=== PATIENT | male | born 1965 | race Two or more races ===

== ENCOUNTER 2024-11-08 16:19 | Inpatient (IN) | payer OTHER ==
[2024-11-08] MEDS: ATORVASTATIN 10 MG TAB PO SCH (21:16)
[2024-11-08] MEDS: hydrALAZINE HCL 25 MG TAB PO SCH (21:16)
[2024-11-08] MEDS: PANTOPRAZOLE 40 MG/10 ML VIAL IVP SCH (21:17)
[2024-11-08 21:26] LABS: HCT 43.2 % (39.0-53.0); HGB 14.1 gm/dL (13.0-17.5); MCH 31.1 pg (25.0-35.0); MCHC 32.5 g/dL (31.0-37.0); MCV 95.7 fL (80.0-100.0); Mean Platelet Volume 7.8; Platelet Count 226 k/uL (150-450); RBC 4.52 m/uL (4.30-5.90); RDW 13.1 % (11.5-15.5)
[2024-11-08] MEDS: IPRATROPIUM-ALBUTEROL 3 ML NEB INHALATION SCH (21:39)
[2024-11-08 22:02] LABS: African American GFR (CKD) 76 (>60 ml/min/1.73 sqM); Anion Gap 10 mmol/L; Blood Urea Nitrogen 30 mg/dL (9-20); Carbon Dioxide 24 mmol/L (22-30); Chloride 101 mmol/L (98-107); Glucose 93 mg/dL (74-99); Non-African American GFR(CKD) 66 (>60 ml/min/1.73 sqM); Potassium 4.1 mmol/L (3.5-5.1); Sodium 135 mmol/L (137-145)
[2024-11-08] MEDS: HEPARIN SODIUM,PORCINE 5,000 UNIT/ML 1 ML VIAL SQ SCH (23:07)
[2024-11-09] MEDS: carvediloL 6.25 MG TAB PO SCH (06:09)
[2024-11-09 06:56] LABS: Basophils % (A) 0 %; Eosinophils # (A) 0.3 k/uL (0-0.7); Eosinophils % (A) 4 %; HGB 13.4 gm/dL (13.0-17.5); Lymphocytes # (A) 1.4 k/uL (1.0-4.8); Lymphocytes % (A) 20 %; MCH 30.2 pg (25.0-35.0); MCHC 31.9 g/dL (31.0-37.0); MCV 94.8 fL (80.0-100.0); Mean Platelet Volume 8.5; Monocytes # (A) 0.6 k/uL (0-1.0); Monocytes % (A) 8 %; Neutrophils # (A) 4.9 k/uL (1.3-7.7); Neutrophils % (A) 67 %; Platelet Count 211 k/uL (150-450); RBC 4.43 m/uL (4.30-5.90); RDW 13.5 % (11.5-15.5); WBC 7.3 k/uL (3.8-10.6)
[2024-11-09 07:20] LABS: ALT 13 U/L (4-49); AST 18 U/L (17-59); African American GFR (CKD) 67 (>60 ml/min/1.73 sqM); Albumin 3.7 g/dL (3.5-5.0); Alkaline Phosphatase 55 U/L (38-126); Anion Gap 7 mmol/L; Blood Urea Nitrogen 27 mg/dL (9-20); Carbon Dioxide 26 mmol/L (22-30); Chloride 103 mmol/L (98-107); Glucose 114 mg/dL (74-99); Magnesium 2.1 mg/dL (1.6-2.3); Non-African American GFR(CKD) 58 (>60 ml/min/1.73 sqM); Sodium 136 mmol/L (137-145); Total Bilirubin 0.4 mg/dL (0.2-1.3)
[2024-11-09 07:24] LABS: INR 1.1 (<1.2); Prothrombin Time 11.9 sec (10.0-12.5)
[2024-11-09] MEDS: ISOSORBIDE MONONITRATE ER 30 MG TAB.ER.24H PO SCH (08:56)
[2024-11-09] MEDS: ASPIRIN 81 MG PO SCH (08:56)
[2024-11-09] MEDS: amLODIPine 10 MG TAB PO SCH (08:56)
--- NOTE | 2024-11-09 09:26 | XR ---
EXAMINATION TYPE: XR chest 1V portable DATE OF EXAM: 11/09/2024 9:21 AM COMPARISON: None CLINICAL INDICATION: Male, 58 years old with history of preop CABG; [facility] TECHNIQUE: XR chest 1V portable Frontal view of the chest. FINDINGS: Lungs/Pleura: Blunting of the costophrenic angles with right midlung flat like probable fluid in the major fissure. There is no evidence of focal consolidation, or pneumothorax. Pulmonary vascularity: Unremarkable. Heart/mediastinum: Cardiomediastinal silhouette is unremarkable. Musculoskeletal: No acute osseous pathology. Other findings: None IMPRESSION: Platelike right midlung suspected fluid in the fissure. Blunting of the left costophrenic angle also present compatible with pleural effusion [facility], , 11/09/2024 9:24 AM
--- NOTE | 2024-11-09 09:49 | P.GSCN ---
History of Present Illness Consult date: 11/09/24 Reason for Consult: Coronary artery disease Requesting physician: Kar E Sheet History of present illness: This is a 58-year-old gentleman who does not follow outpatient with a primary care physician on regular basis, and he reports no significant previous medical history except current tobacco dependence. Apparently he had been experiencing progressive shortness of breath for a few weeks, he did present to an urgent care clinic and was given steroids and antibiotics for suspected pneumonia. Apparently he did not like the way the antibiotics made him feel and he quit taking them. He then presented to [facility] for evaluation and treatment. He did have a CT of the chest demonstrating cardiomyopathy with pulmonary vascular congestion, as well as bilateral pleural effusions. proBNP was over 12,000 and he was treated for acute heart failure. Transthoracic echocardiogram was completed reportedly demonstrating reduced left ventricular systolic function with EF of 40 to 45%, global hypokinesis of the left ventricle, and no valvular pathology, this is per the report as there were no films available for us to review. For further evaluation he was recommended to undergo heart catheterization which was completed yesterday by Dr. Faulkenr revealing distal left main stenosis 40%, mid and distal left anterior descending coronary artery stenosis 70 to 80%, moderate disease in the proximal ramus, and mid RCA disease 70%. Due to these findings patient was transferred to [facility] for cardiothoracic surgery recommendations regarding surgical revascularization. Review of Systems Review of systems was completed and was negative except as noted - Cardiovascular Reports as per HPI, Reports dyspnea on exertion, Reports shortness of breath Past Medical History Past Medical History: No Reported History History of Any Multi-Drug Resistant Organisms: None Reported Past Surgical History: No Surgical Hx Reported Past Anesthesia/Blood Transfusion Reactions: No Reported Reaction Past Psychological History: No Psychological Hx Reported Smoking Status: Current every day smoker Past Drug Use History: None Reported Medications and Allergies Home Medications Medication Instructions Recorded Confirmed Type Albuterol Inhaler [Ventolin Hfa 1 puff INHALATION RT-Q4H PRN 11/08/24 11/08/24 History Inhaler] Ipratropium-Albuterol Nebulize 3 ml INHALATION RT-Q8H PRN 11/08/24 11/08/24 History [Duoneb 0.5 mg-3 mg/3 ml Soln] Allergies Allergy/AdvReac Type Severity Reaction Status Date / Time No Known Allergies Allergy Verified 11/08/24 21:12 Surgical - Exam Vital Signs Temp Pulse Resp BP Pulse Ox 97.5 F L 85 17 163/94 97 11/08/24 18:21 11/08/24 18:21 11/08/24 18:21 11/08/24 18:21 11/08/24 18:21 CONSTITUTIONAL: Awake and alert, appears comfortable, cooperative, well-developed, well-nourished, no pain, no acute distress EYES: Pupils equal, round, reactive to light, normal ocular movement ENT: Moist mucous membranes without oral lesions present NECK: No masses, no bruits, trachea midline RESPIRATORY: Lungs sounds diminished bilaterally. Respirations even, nonlabored. Currently on room air with oxygen saturation 97%. Strong cough. No chest wall deformities. No clubbing or cyanosis present CARDIOVASCULAR: S1, S2 present. Regular rate and rhythm, sinus rhythm on telemetry. Palpable peripheral pulses bilaterally. No edema present. No calf pain or tenderness noted. GASTROINTESTINAL: Abdomen soft, nontender, nondistended without masses or organomegaly noted. There is no rebound or guarding present. Active bowel sounds present 4 quadrants. GENITOURINARY: Deferred INTEGUMENTARY: Skin is warm and dry with evidence of good perfusion. NEUROLOGIC: Cranial nerves II through XII intact, normal coordination, no obvious motor or sensory deficits, speech is normal MUSKULOSKELETAL: Able to move all extremities, strength equal bilaterally, normal posture PSYCHIATRIC: Alert and oriented to person place and time, appropriate affect, intact judgment and insight CLINICAL FRAILTY SCORE 3 Results - Labs 11/09/24 06:28 11/09/24 06:28 Abnormal Lab Results - Last 24 Hours (Table) 11/08/24 11/09/24 Range/Units 21:08 06:28 Sodium 135 L 136 L (137-145) mmol/L BUN 30 H 27 H (9-20) mg/dL Creatinine 1.34 H (0.66-1.25) mg/dL Glucose 114 H (74-99) mg/dL Total Protein 6.0 L (6.3-8.2) g/dL Diabetes panel 11/08/24 11/09/24 Range/Units 21:08 06:28 Sodium 135 L 136 L (137-145) mmol/L Potassium 4.1 4.0 (3.5-5.1) mmol/L Chloride 101 103 (98-107) mmol/L Carbon Dioxide 24 26 (22-30) mmol/L BUN 30 H 27 H (9-20) mg/dL Creatinine 1.19 1.34 H (0.66-1.25) mg/dL Glucose 93 114 H (74-99) mg/dL Calcium 9.0 9.0 (8.4-10.2) mg/dL AST 18 (17-59) U/L ALT 13 (4-49) U/L Alkaline Phosphatase 55 (38-126) U/L Total Protein 6.0 L (6.3-8.2) g/dL Albumin 3.7 (3.5-5.0) g/dL Calcium panel 11/08/24 11/09/24 Range/Units 21:08 06:28 Calcium 9.0 9.0 (8.4-10.2) mg/dL Albumin 3.7 (3.5-5.0) g/dL Pituitary panel 11/08/24 11/09/24 Range/Units 21:08 06:28 Sodium 135 L 136 L (137-145) mmol/L Potassium 4.1 4.0 (3.5-5.1) mmol/L Chloride 101 103 (98-107) mmol/L Carbon Dioxide 24 26 (22-30) mmol/L BUN 30 H 27 H (9-20) mg/dL Creatinine 1.19 1.34 H (0.66-1.25) mg/dL Glucose 93 114 H (74-99) mg/dL Calcium 9.0 9.0 (8.4-10.2) mg/dL Adrenal panel 11/08/24 11/09/24 Range/Units 21:08 06:28 Sodium 135 L 136 L (137-145) mmol/L Potassium 4.1 4.0 (3.5-5.1) mmol/L Chloride 101 103 (98-107) mmol/L Carbon Dioxide 24 26 (22-30) mmol/L BUN 30 H 27 H (9-20) mg/dL Creatinine 1.19 1.34 H (0.66-1.25) mg/dL Glucose 93 114 H (74-99) mg/dL Calcium 9.0 9.0 (8.4-10.2) mg/dL Total Bilirubin 0.4 (0.2-1.3) mg/dL AST 18 (17-59) U/L ALT 13 (4-49) U/L Alkaline Phosphatase 55 (38-126) U/L Total Protein 6.0 L (6.3-8.2) g/dL Albumin 3.7 (3.5-5.0) g/dL - Imaging Chest x-ray: report reviewed, image reviewed EKG: image reviewed Additional studies: Heart catheterization films reviewed, echocardiogram report reviewed Assessment and Plan Assessment: Coronary artery disease Acute heart failure with reduced ejection fraction, EF 40 to 45%, proBNP 12,317 Suspected pneumonia with failed outpatient treatment, although no leukocytosis, remains afebrile, procalcitonin at [facility] < 0.05 Bilateral pleural effusions on CT scan at [facility] Shortness of breath, secondary to above Current tobacco dependence Plan: The patient was seen and examined laying in bed on the cardiac stepdown unit in no acute distress. Denies any chest pain or shortness of breath currently. The patient states he has too much work including heavy lifting and does not want to be left in invalid with surgery or have to have repeat hospitalizations, states if he cannot do his work he would rather . Remains on room air, remains in sinus rhythm and hemodynamically stable. Case discussed with Dr. Powell who will review patient's heart catheterization films, CAT scan. Will attempt to get echocardiogram films from [facility], preoperative testing (carotid Doppler, vein mapping, radial artery mapping, pulmonary function test) ordered. Will calculate STS risk score and perform 5 m walk test. Recommend continuing aspirin, statin, beta-miguel angel therapy. Increase activity as tolerated. Medical management of other comorbidities per internal medicine, cardiology. Thank you Dr. Loemli for this consult. We will continue to follow this patient and make further recommendations as appropriate. I have personally seen and examined the patient, performed the documentation and the assessment and plan as written. Number of minutes spent on the visit: 30. RUBEN Brantley
--- NOTE | 2024-11-09 11:29 | US ---
EXAMINATION TYPE: US carotid duplex BILAT DATE OF EXAM: 11/09/2024 COMPARISON: NONE CLINICAL INDICATION: Male, 58 years old with history of preop cardiac surgery; Additional History: .... TECHNIQUE: Grayscale, color Doppler and spectral Doppler evaluation of the bilateral carotid systems and vertebral arteries. Indirect Doppler criteria was utilized. 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 Spectral waveforms are within normal limits. IMPRESSION: Right: No hemodynamically significant stenosis. Left: No hemodynamically significant stenosis. Criteria for Assigning % of Stenosis / Diameter reduction (Estimation based on the indirect measurements of the internal carotid artery velocities (ICA PSV). 1. Normal (no stenosis)=ICA PSV < 125 cm/s: ratio < 2.0: ICA EDV<40 cm/s. 2. Less than 50% stenosis=ICA PSV < 125 cm/s: ratio < 2.0: ICA EDV<40 cm/s. 3. 50 to 69% stenosis=ICA PSV of 125 to 230 cm/s: ration 2.0 ? 4.0: ICA EDV 40-100 cm/s. 4. Greater than 70% stenosis to near occlusion= ICA PSV > 230 cm/s: ratio > 4.0: ICA EDV > 100 cm/s. 5. Near occlusion= ICA PSV velocities may be low or undetectable: variable ratio and ICA EDV. 6. Total occlusion=unable to detect flow. [facility], , 11/09/2024 11:26 AM
--- NOTE | 2024-11-09 11:30 | US ---
EXAMINATION TYPE: Pre-Operative Non-Invasive Evaluation of the hand for Potential Radial Artery Renita blue, Measurements only DATE OF EXAM: 11/09/2024 10:57 AM CLINICAL INDICATION: Male, 58 years old with history of measurements only; , Preop- Cardiac Surgery TECHNIQUE:Grayscale and color Doppler imaging of the radial artery(s) SIDE PERFORMED: FINDINGS: Dominant hand: Left Duplex Findings: Radial Artery: Color flow seen Measurements in mm, transverse view: Left Radial: Proximal: 3.7x3.8 mm Mid: 3.6x3.7 mm Distal: 3.1x4.3 mm Unable to obtain origin due to IV IMPRESSION: 1. No evidence for vascular occlusion. 2. Measurements as described above. [facility], , 11/09/2024 11:28 AM
--- NOTE | 2024-11-09 11:32 | US ---
EXAMINATION TYPE: US vein mapping BILAT DATE OF EXAM: 11/09/2024 10:57 AM COMPARISON: NONE CLINICAL INDICATION: Male, 58 years old with history of preop cardiac surgery; , Preop- Cardiac Surge ry TECHNIQUE: Grayscale and color Doppler imaging of the lower extremity venous system. SIDE PERFORMED: Bilateral FINDINGS: DUPLEX FINDINGS: Greater Saphenous: Color flow seen Measurements in mm: Right Greater Saphenous: Groin: 4.7x4.9 mm High Thigh: 4.4x3.3 mm Mid Thigh: 4.2x2.9 mm Above Knee: 3.0x2.8 mm Knee: 3.6x3.0 mm Below Knee: 2.7x2.0 mm Mid Calf: 2.8x2.1 mm At Ankle: 4.3x2.5 mm Left Greater Saphenous: Groin: 4.3x3.9 mm High Thigh: 3.6x2.4 mm Mid Thigh: 3.8x3.4 mm Above Knee: 4.0x3.4 mm Knee: 4.3x3.2 mm Below Knee: 2.8x1.9 mm Mid Calf: 3.4x2.6 mm At Ankle: 3.8x2.7 mm IMPRESSION: 1. No evidence for occlusion. 2. GSV measurements listed above. 3. Performing surgeon to determine viability as conduit. [facility], , 11/09/2024 11:30 AM
[2024-11-09] MEDS ORDERED: IPRATROPIUM-ALBUTEROL 3 ML NEB INHALATION PRN (12:16)
--- NOTE | 2024-11-09 12:49 | P.CRDCN ---
History of Present Illness History of present illness: HISTORY OF PRESENT ILLNESS: This is a 58-year-old male with a past medical history significant for nicotine dependence. Patient is not follow with a electrical worker. We have been asked to see the patient in consultation for CAD. Patient examined at the bedside. Patient initially presented to [facility] with shortness of breath. Patient underwent cardiac catheterization by Dr. Faulkner by revealing distal left main stenosis 40%, mid and distal left anterior descending coronary artery stenosis 70 to 80%, moderate disease in the proximal ramus, and mid RCA disease 70%. CT surgery was consulted for evaluation. Patient examined at bedside. Patient currently denies chest pain or pressure. He denies shortness of breath. REVIEW OF SYSTEMS: At the time of my exam: CONSTITUTIONAL: Denies fever or chills. HEENT: Denies blurred vision, vision changes, or eye pain. Denies hemoptysis CARDIOVASCULAR: Denies chest pain. Denies orthopnea. Denies PND. Denies palpitations RESPIRATORY: Denies shortness of breath. GASTROINTESTINAL: Denies abdominal pain. Denies nausea or vomiting. HEMATOLOGIC: Denies bleeding disorders. GENITOURINARY: Denies any blood in urine. SKIN: Denies pruitis. Denies rash. PHYSICAL EXAM: VITAL SIGNS: Reviewed. GENERAL: Well-developed in no acute distress. HEENT: Head is normocephalic. Pupils are equal, round. Sclerae anicteric. Mucous membranes of the mouth are moist. Neck supple. No JVD or thyromegaly LUNGS: Respirations even and unlabored. Lungs essentially clear to auscultation bilaterally. HEART: Regular rate and rhythm. S1 and S2 heard. ABDOMEN: Soft. Nondistended. Nontender. EXTREMITIES: Normal range of motion. No clubbing or cyanosis. Peripheral pulses intact. No lower extremity edema NEUROLOGIC: Awake and alert. Oriented x 3. ASSESSMENT: Shortness of breath Acute heart failure with reduced EF, currently euvolemic Coronary artery disease, CT surgery consult has been placed Ischemic cardiomyopathy, 40% Hypertension Nicotine dependence PLAN: Current cardiac medications Increase carvedilol to 12.5 mg twice a day Add losartan 50 mg daily Continue telemetry monitoring Continue to monitor blood pressure CT surgery has been consulted. Await further recommendations Further recommendations pending patient course Nurse practitioner note has been reviewed by physician. Signing provider agrees with the documented findings, assessment, and plan of care documented by CREDIT COLLECTION SPECIALIST as a scribe. Past Medical History Past Medical History: No Reported History History of Any Multi-Drug Resistant Organisms: None Reported Past Surgical History: No Surgical Hx Reported Past Anesthesia/Blood Transfusion Reactions: No Reported Reaction Past Psychological History: No Psychological Hx Reported Smoking Status: Current every day smoker Past Drug Use History: None Reported Medications and Allergies Home Medications Medication Instructions Recorded Confirmed Type Albuterol Inhaler [Ventolin Hfa 1 puff INHALATION RT-Q4H PRN 11/08/24 11/08/24 History Inhaler] Ipratropium-Albuterol Nebulize 3 ml INHALATION RT-Q8H PRN 11/08/24 11/08/24 History [Duoneb 0.5 mg-3 mg/3 ml Soln] Allergies Allergy/AdvReac Type Severity Reaction Status Date / Time No Known Allergies Allergy Verified 11/08/24 21:12 Physical Exam Vitals: Vital Signs Temp Pulse Pulse Resp BP Pulse Ox 11/09/24 08:50 97.6 F 16 200/119 97 11/09/24 08:35 106 H 16 11/09/24 08:22 106 H 16 11/09/24 06:08 83 162/98 11/09/24 03:16 97.9 F 75 17 155/84 98 11/09/24 00:19 84 18 11/09/24 00:13 81 18 11/08/24 23:09 98.1 F 87 17 159/101 94 L 11/08/24 21:56 88 11/08/24 21:39 89 11/08/24 19:51 98.1 F 84 17 151/91 93 L 11/08/24 18:21 97.5 F L 85 17 163/94 97 Intake and Output 11/08/24 11/09/24 11/09/24 22:59 06:59 14:59 Intake Total 480 10 Balance 480 10 Intake: IV 10 Invasive Line 1 10 Oral 480 Other: Voiding Method Toilet Toilet Weight 73.121 kg 70.1 kg Results 11/09/24 06:28 11/09/24 06:28 Cardiac Enzymes 11/09/24 Range/Units 06:28 AST 18 (17-59) U/L Coagulation 11/09/24 Range/Units 06:28 PT 11.9 (10.0-12.5) sec CBC 11/08/24 11/09/24 Range/Units 21:08 06:28 WBC 7.0 7.3 (3.8-10.6) k/uL RBC 4.52 4.43 (4.30-5.90) m/uL Hgb 14.1 13.4 (13.0-17.5) gm/dL Hct 43.2 42.0 (39.0-53.0) % Plt Count 226 211 (150-450) k/uL Comprehensive Metabolic Panel 11/08/24 11/09/24 Range/Units 21:08 06:28 Sodium 135 L 136 L (137-145) mmol/L Potassium 4.1 4.0 (3.5-5.1) mmol/L Chloride 101 103 (98-107) mmol/L Carbon Dioxide 24 26 (22-30) mmol/L BUN 30 H 27 H (9-20) mg/dL Creatinine 1.19 1.34 H (0.66-1.25) mg/dL Glucose 93 114 H (74-99) mg/dL Calcium 9.0 9.0 (8.4-10.2) mg/dL AST 18 (17-59) U/L ALT 13 (4-49) U/L Alkaline Phosphatase 55 (38-126) U/L Total Protein 6.0 L (6.3-8.2) g/dL Albumin 3.7 (3.5-5.0) g/dL Current Medications Generic Name Dose Route Start Last Admin Trade Name Freq PRN Reason Stop Dose Admin Albuterol/Ipratropium 3 ml 11/08/24 20:00 11/09/24 08:21 Ipratropium-Albuterol 3 Ml Neb INHALATION 3 ml RT-Q4H ARMIDA Administration Amlodipine Besylate 10 mg 11/09/24 09:00 11/09/24 08:56 Amlodipine 10 Mg Tab PO 10 mg DAILY ARMIDA Administration Aspirin 81 mg 11/09/24 09:00 11/09/24 08:56 Aspirin 81 Mg PO 81 mg DAILY ARMIDA Administration Atorvastatin Calcium 10 mg 11/08/24 21:00 11/08/24 21:16 Atorvastatin 10 Mg Tab PO 10 mg HS ARMIDA Administration Carvedilol 12.5 mg 11/09/24 17:30 Carvedilol 12.5 Mg Tab PO BID-W/MEALS ARMIDA Heparin Sodium (Porcine) 5,000 unit 11/09/24 00:00 11/09/24 08:57 Heparin Sodium,Porcine 5,000 Unit/Ml 1 Ml Vial SQ Not Given Q8HR ARMIDA Hydralazine HCl 25 mg 11/08/24 22:00 11/09/24 08:56 Hydralazine Hcl 25 Mg Tab PO 25 mg QID ARMIDA Administration Isosorbide Mononitrate 30 mg 11/09/24 09:00 11/09/24 08:56 Isosorbide Mononitrate Er 30 Mg Tab.Er.24h PO 30 mg DAILY ARMIDA Administration Losartan Potassium 50 mg 11/10/24 09:00 Losartan 50 Mg Tab PO DAILY [facility] Pantoprazole Sodium 40 mg 11/08/24 21:00 11/09/24 08:56 Pantoprazole 40 Mg/10 Ml Vial IVP 40 mg BID ARMIDA Administration Intake and Output 11/08/24 11/09/24 11/09/24 22:59 06:59 14:59 Intake Total 480 10 Balance 480 10 Intake: IV 10 Invasive Line 1 10 Oral 480 Other: Voiding Method Toilet Toilet Weight 73.121 kg 70.1 kg 11/09/24 06:28 11/09/24 06:28
[2024-11-09] MEDS ORDERED: hydrALAZINE HCL 20 MG/ML 1 ML VIAL IVP PRN (14:19)
[2024-11-09] MEDS: carvediloL 12.5 MG TAB PO SCH (17:42)
[2024-11-09] MEDS: ATORVASTATIN 40 MG TAB PO SCH (20:40)
--- NOTE | 2024-11-09 23:59 | HP ---
HISTORY AND PHYSICAL CHIEF COMPLAINT: Shortness of breath. HISTORY OF PRESENT ILLNESS: This is a 58-year-old gentleman with a past medical history of multiple medical problems, presented with shortness of breath to [facility]. Cardiac catheterization by Dr. Rico showed 3-vessel disease including left main and as well as LAD and RCA disease. The patient was subsequently referred to [facility] for further evaluation including cardiovascular evaluation. There is no history of any fever, rigors, or chills at this time. ProBNP was also elevated. The patient is on medical treatment at this time. PAST MEDICAL HISTORY: Noted. FAMILY HISTORY: No history of heart disease or strokes in the family. SOCIAL HISTORY: Smoking. 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 REVIEW OF SYSTEMS: A 14-point review of systems is negative except as mentioned earlier. PHYSICAL EXAMINATION: VITAL SIGNS: Pulse is 104, blood pressure 190/131, respirations 18. HEENT: Conjunctivae normal. NECK: No JVD. CARDIOVASCULAR: S1, S2. RESPIRATIONS: Breath sounds diminished at the bases. No rhonchi. No crackles. ABDOMEN: Soft, nontender. LEGS: No edema. NERVOUS SYSTEM: Nonfocal. LABORATORY DATA: Creatinine 1.3. ASSESSMENT: 1. Congestive heart failure acute exacerbation, acute on chronic systolic dysfunction, ejection fraction 40%. 2. Coronary artery disease with triple-vessel coronary artery disease. 3. Elevated creatinine. 4. History of nicotine dependence. 5. Hypertension. RECOMMENDATIONS AND DISCUSSION: This is a 58-year-old gentleman, who presented with multiple complex medical issues. We will monitor the patient closely. I would recommend monitor creatinine closely. Monitor fluid electrolyte balance closely. Repeat chest x-ray. Cardiology, cardiac arrest evaluation. Guarded prognosis because of multiple complex medical issues. Further recommendations to follow. Use p.r.n. hydralazine for blood pressure control. MMODL / IJN: [id number] /
[2024-11-10 06:30] LABS: Basophils % (A) 0 %; Eosinophils # (A) 0.2 k/uL (0-0.7); Eosinophils % (A) 3 %; HCT 38.5 % (39.0-53.0); HGB 12.6 gm/dL (13.0-17.5); Lymphocytes # (A) 1.3 k/uL (1.0-4.8); Lymphocytes % (A) 19 %; MCH 31.1 pg (25.0-35.0); MCHC 32.8 g/dL (31.0-37.0); MCV 94.8 fL (80.0-100.0); Mean Platelet Volume 8.4; Monocytes # (A) 0.5 k/uL (0-1.0); Monocytes % (A) 8 %; Neutrophils # (A) 4.9 k/uL (1.3-7.7); Neutrophils % (A) 69 %; Platelet Count 201 k/uL (150-450); RBC 4.07 m/uL (4.30-5.90); RDW 13.4 % (11.5-15.5); WBC 7.1 k/uL (3.8-10.6)
[2024-11-10 06:43] LABS: African American GFR (CKD) 71 (>60 ml/min/1.73 sqM); Anion Gap 11 mmol/L; Blood Urea Nitrogen 25 mg/dL (9-20); Calcium 9.1 mg/dL (8.4-10.2); Carbon Dioxide 23 mmol/L (22-30); Chloride 104 mmol/L (98-107); Glucose 116 mg/dL (74-99); Non-African American GFR(CKD) 62 (>60 ml/min/1.73 sqM); Potassium 4.3 mmol/L (3.5-5.1); Sodium 138 mmol/L (137-145)
[2024-11-10] MEDS: LOSARTAN 50 MG TAB PO SCH (08:39)
[2024-11-10] MEDS: NICOTINE 14MG/24HR PATCH TRANSDERM SCH (08:59)
[2024-11-10] MEDS: carvediloL 12.5 MG TAB PO STA (09:29)
--- NOTE | 2024-11-10 10:44 | PN ---
PROGRESS NOTE SUBJECTIVE: Sergo is a 58-year-old gentleman who is transferred from [facility] following a cardiac catheterization that revealed three-vessel coronary artery disease. He had been evaluated by CT surgery and refused bypass surgery. This morning, I re- evaluated him. He is chest pain-free and hemodynamically stable, and does not want to have surgery done. He will undergo high-risk angioplasty and understands risks and benefits. OBJECTIVE: GENERAL: He is comfortable at rest. VITAL SIGNS: Heart rate is 87 beats per minute. Blood pressure is 150/83, respiratory rate 18. CHEST: Reveals diminished air entry at the bases. HEART: Reveals first and second heart sounds. No gallop. EXTREMITIES: Did not reveal any edema. Peripheral pulses are felt. LABORATORY DATA: Show that his hemoglobin is 12.6, potassium is 4.3, creatinine is 1.26. ASSESSMENT: 1. Multivessel coronary artery disease. 2. Ischemic cardiomyopathy. 3. Uncontrolled hypertension. PLAN: The patient does not wish to go through surgical revascularization. Dr. Burgos, the on- call strategic marketing leader has had reviewed his angiographic data and will consider high-risk angioplasty. MMODL / IJN: [id number] /
[2024-11-10] MEDS: SODIUM CHLORIDE 0.9% 1,000 ML IV SCH (14:26)
[2024-11-10] MEDS: carvediloL 12.5 MG TAB PO SCH (17:29)
[2024-11-10] MEDS: IV FLUID CONTINUATION 1,000 ML IV ONE (19:00)
[2024-11-10] MEDS: TICAGRELOR 90 MG TAB PO ONE (19:09)
[2024-11-10] MEDS: MIDAZOLAM 2 MG/2 ML VIAL IVP ONE ×2 (19:09→19:21)
[2024-11-10] MEDS: LIDOCAINE 1% INJ 10MG/ML (20 ML MDV) SQ ONE (19:14)
[2024-11-10] MEDS: VERAPAMIL SYRINGE (5 MG/10 ML) INTRAARTER ONE (19:18)
[2024-11-10] MEDS: ASPIRIN 81 MG PO ONE (19:20)
[2024-11-10] MEDS: HEPARIN SODIUM 1,000 UN/ML (10ML VL) IVP ONE (19:21)
[2024-11-10] MEDS: IOPAMIDOL-370 100ML BTL INJ ONE ×2 (20:07→20:22)
[2024-11-10] MEDS: NITROGLYCERIN 1000MCG/10ML SYRINGE INTRACORON ONE (20:16)
[2024-11-10] MEDS: fentaNYL (PF) 50 MCG/ML 2 ML AMP IVP ONE (20:21)
[2024-11-10] MEDS ORDERED: ZOLPIDEM 5 MG TAB PO PRN (20:27)
[2024-11-10] MEDS ORDERED: ATROPINE SULFATE 0.1 MG/ML 10ML SYRINGE IV PRN (20:27)
[2024-11-10] MEDS ORDERED: MAG HYDROX/AL HYDROX/SIMETH 30 ML CUP PO PRN (20:27)
[2024-11-10] MEDS ORDERED: NITROGLYCERIN SL TABS 0.4 MG TAB SUBLINGUAL PRN (20:27)
[2024-11-10] MEDS ORDERED: RX INFO: IV CONTRAST WAS GIVEN 1 EACH MISC MISCELLANE PRN (20:27)
--- NOTE | 2024-11-10 20:38 | P.PCN ---
Date of Procedure: 11/10/24 Operative Findings: PERCUTANEOUS CORONARY INTERVENTION Performing physician Victor M Burgos M.D. Procedure Performed: 1. Successful stenting of the mid LAD using 3.0 x 48 mm Xience drug-eluting stent with an excellent angiographic results. 2. Adjunctive use of IVUS and IFR 3. Ultrasound-guided access of the right radial artery Indication: This is a 58-year-old gentleman who was admitted initially to [facility] with unstable angina and underwent an echocardiogram which showed cardiomyopathy with EF around 40% and then a heart catheterization which revealed severe disease involving the RCA and LAD. He was transferred to [facility] where cardiothoracic surgical consult was advised for an evaluation of CABG but the patient declined having surgery and he would like to be proceed with percutaneous coronary intervention. With that being said he was brought today to undergo a PCI Approach: Right radial artery Complications: None Level of Sedation: Moderate with a sedation length of 71 minutes Procedure Discussion: Please refer to diagnostic heart catheterization was performed by Dr. Faulkner at [facility]. After obtaining informed consent the patient was brought to the cardiac Design Studio Consultant with right radial artery was cannulated using micropuncture technique under ultrasound guidance the micropuncture wire passed easily then a place a 6 Lithuanian 11 cm sheath at the right radial artery. At that point I did start anticoagulation using heparin with continuous ACT monitoring. Subsequently the patient was loaded with 180 mg of Brilinta. The initial plan was to do a PCI of the RCA. At that point I decided to engage the RCA using JR4 guiding catheter. RCA angiogram was performed and showed that the lesion in the RCA and PLV branch of the RCA appeared to be intermediate. At that point the plan was changed from doing PCI to do an IFR. After zeroing Dobler wire and equalizing between the Dobler wire and guiding catheter which was JR4 guiding catheter the RCA was engaged and subsequently it was wired by the wire that was advanced to the PLV branch. The IFR of the RCA and PLV came to be at 0.96 but the IFR of the RCA came into the at 0.97 and with that being said we decided to defer the PCI of the RCA. At that point we decided to do an IFR of the left main and LAD. So after zeroing the Dobler wire again and equalizing between the Dobler wire and guiding catheter which was JL 3.5 guiding catheter the left main was engaged and subsequently the wire was advanced to the LAD distal to the lesion. We did an IFR and that came in to be at 0.77. I did perform an IFR of the diagonal as well and that came to be at 0.81. I did pullback of the wire across the LAD and diagonal lesion all the way to be just distal to the left main lesion and we did IFR and that came into at 0.96 which is nonischemic and with that being said we decided to intervene on the LAD only. Anticoagulation continued using heparin with continuous ACT monitoring. I did place the Dobler wire in the diagonal branch and run-through wire in the LAD. I did IVUS of the LAD and that showed a diameter around 3 mm to 3.25 mm. The proximal to the lesion was about 4 mm. I did predilatation using 3 mm none compliant balloon before I deployed 3.0 x 48 mm Xience TYRON where the stent was positioned under fluoroscopy guidance and deployed under fluoroscopy guidance. Subsequently I did postdilatation of the stent in the proximal portion using 3.5 mm noncompliant balloon. IVUS was performed and showed that the stent in the midportion by the bifurcation of the diagonal appears to be not well expanded. I did postdilated that area using 3.25 mm noncompliant balloon. An angiogram was performed and showed that also the proximal portion of the stent was also appears to be not well expanded so I decided to do postdilatation using 4 mm noncompliant balloon. Final angiogram showed excellent angiographic results with SHAINA-3 flow in the LAD and diagonal branch and no significant pinch on the diagonal branch. At that point we decided to stop. The procedure was completed with no complication. The patient tolerated the procedure very well. Continuous ACT monitoring was performed throughout the procedure Postprocedure Management: 1. Dual antiplatelet therapy using aspirin and Brilinta for at least 12 months 2. Aggressive cholesterol control 3. Risk factors modification
[2024-11-10] MEDS: ATORVASTATIN 80 MG TAB PO SCH (21:29)
[2024-11-10] MEDS: SODIUM CHLORIDE 0.9% 1,000 ML in EMPTY BAG 1 BAG IV SCH (21:31)
--- NOTE | 2024-11-11 05:04 | P.PN ---
Subjective Progress Note Date: 11/10/24 This is a 58-year-old male who was recently admitted with three-vessel coronary artery disease and transferred from [facility] for further evaluation. CT surgery initiating intervention for testing and workup although patient is refusing CABG at this time. Patient has discussed with cardiology and will undergo possible PCI intervention at this time. Will await official report. Patient would like to go home as cussed with cardiology once cleared. Review of systems: Constitutional: No reports of fatigue, fever, or chills Cardiovascular: No reports of chest pain or palpitations Respiratory: No reports of shortness of breath or cough GI: No reports of nausea, no reports of vomiting, no diarrhea : No reports of dysuria or retention Neurovascular: No reports of generalized weakness All medications have been reviewed PHYSICAL EXAMINATION: GENERAL: The patient is alert and oriented x4, Well developed, well nourished. HEENT: Pupils are round and equally reacting to light. EOMI. no scleral icterus. No conjunctival pallor. Normocephalic, atraumatic. No pharyngeal erythema. No thyromegaly. CARDIOVASCULAR: S1 and S2 muffled PULMONARY: diminished breath sounds bilaterally with no wheezing or rhonchi noted. ABDOMEN: soft. Nontender on exam. obese. non-distended, normoactive bowel sounds. No palpable organomegaly. MUSCULOSKELETAL: No joint swelling or deformity. EXTREMITIES: No cyanosis, clubbing, or pedal edema. NEUROLOGICAL: Gross neurological examination did not reveal any focal deficits. SKIN: No rashes. Assessment: Multilevel coronary artery disease, scheduled to undergo PCI intervention with Dr. Burgos today 11/10/2024 Ischemic cardiomyopathy Hypertension uncontrolled Continued ongoing nicotine abuse GI prophylaxis DVT prophylaxis Full code Plan: Recommend to continue with current medications and management with cardiology following. Dr. Burgos to undergo possible PCI stenting as patient does not want to pursue revascularization surgery. Patient is currently n.p.o. and will await official report Continue on telemetry monitoring and await cardiology clearance. Patient to follow-up outpatient with CT surgery/cardiology Continue current medication regimen Will discuss with cardiology when cleared for discharge possibly in the next 24 to 48 hours Recommend complete tobacco cessation Due to multiple complex medical issues, overall prognosis is guarded The impression and plan of care has been dictated by Marie Kwon, nurse practitioner as directed. Dr. Casper MD I have performed a history and examination and MDM of this patient, discussed the same with the dictator, and agree with the dictator's assessment and plan as written ,documented as a scribe. Based on total visit time, I have performed more than 50% of the visit. Any additional findings or plans will be noted. Objective - Vital Signs Vital signs: Vital Signs Temp 98.4 F 11/11/24 04:25 Pulse 78 11/11/24 04:25 Resp 16 11/11/24 04:25 BP 144/80 11/11/24 04:25 Pulse Ox 97 11/11/24 04:25 FiO2 Intake & Output 11/10/24 11/10/24 11/11/24 06:59 18:59 06:59 Intake Total 250 Balance 250 Weight 70.6 kg Intake: IV 250 Other: Voiding Method Toilet Toilet Toilet - Labs CBC & Chem 7: 11/10/24 05:35 11/10/24 05:35 Labs: Abnormal Lab Results - Last 24 Hours (Table) 11/10/24 11/10/24 Range/Units 05:35 05:35 RBC 4.07 L (4.30-5.90) m/uL Hgb 12.6 L (13.0-17.5) gm/dL Hct 38.5 L (39.0-53.0) % BUN 25 H (9-20) mg/dL Creatinine 1.26 H (0.66-1.25) mg/dL Glucose 116 H (74-99) mg/dL Microbiology - Last 24 Hours (Table) 11/09/24 12:50 Nasal Screen MRSA/MSSA - Final Nasal Swab
[2024-11-11 06:31] LABS: African American GFR (CKD) 71 (>60 ml/min/1.73 sqM); Non-African American GFR(CKD) 61 (>60 ml/min/1.73 sqM)
[2024-11-11] MEDS ORDERED: HEPARIN SODIUM,PORCINE 10,000 UNIT in SODIUM CHLORIDE 0.9% 1,000 ML IRRIGATION PRN (07:00)
[2024-11-11] MEDS ORDERED: HEPARIN SODIUM,PORCINE (1 ML) 2,500 UNIT in SODIUM CHLORIDE 0.9% 250 ML IRRIGATION PRN (07:00)
[2024-11-11] MEDS: TICAGRELOR 90 MG TAB PO SCH (08:27)
[2024-11-11 08:31] VITALS: TEMP 97.5
[2024-11-11] MEDS ORDERED: ASPIRIN 81 MG PO SCH (09:00)
[2024-11-11 11:48] VITALS: BP 146/72; PULSE 83; RESP 16
--- NOTE | 2024-11-11 12:04 | P.PN ---
Subjective HISTORY OF PRESENT ILLNESS: This is a 58-year-old male with a past medical history significant for nicotine dependence. 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 We have been asked to see the patient in consultation for CAD. Patient examined at the bedside. Patient initially presented to [facility] with shortness of breath. P atient underwent cardiac catheterization by Dr. Faulkner by revealing distal left main stenosis 40%, mid and distal left anterior descending coronary artery stenosis 70 to 80%, moderate disease in the proximal ramus, and mid RCA disease 70%. CT surgery was consulted for evaluation. Patient examined at bedside. Patient currently denies chest pain or pressure. He denies shortness of breath. 11/11/2024 Patient was evaluated by CT surgery. Patient declined to pursue CABG. Patient underwent repeat cardiac catheterization yesterday with Dr. Burgos. Patient underwent stenting of the mid LAD. Patient underwent IFR of the RCA which came back to be 0.97 so no PCI of the RCA was completed. Patient currently denies chest pain or pressure. He denies shortness of breath. Vital signs are stable. PHYSICAL EXAM: VITAL SIGNS: Reviewed. GENERAL: Well-developed in no acute distress. HEENT: Head is normocephalic. Pupils are equal, round. Sclerae anicteric. Mucous membranes of the mouth are moist. Neck supple. No JVD or thyromegaly LUNGS: Respirations even and unlabored. Lungs essentially clear to auscultation bilaterally. HEART: Regular rate and rhythm. S1 and S2 heard. ABDOMEN: Soft. Nondistended. Nontender. EXTREMITIES: Normal range of motion. No clubbing or cyanosis. Peripheral pulses intact. No lower extremity edema NEUROLOGIC: Awake and alert. Oriented x 3. ASSESSMENT: Shortness of breath Acute heart failure with reduced EF, currently euvolemic Coronary artery disease, status post PCI of the mid LAD Ischemic cardiomyopathy, 40% Hypertension Nicotine dependence PLAN: Continue dual antiplatelet therapy with aspirin and Brilinta for 12 months Continue statin therapy. LDL goal less than 70. Continue additional cardiac medications Patient is stable for discharge home today from a cardiac standpoint Patient to follow-up postdischarge with Dr. Faulkner Nurse practitioner note has been reviewed by physician. Signing provider agrees with the documented findings, assessment, and plan of care documented by [employer] as a scribe. Objective - Vital Signs Vital signs: Vital Signs Temp 97.5 F L 11/11/24 11:47 Pulse 83 11/11/24 11:47 Resp 16 11/11/24 11:47 BP 146/72 11/11/24 11:47 Pulse Ox 98 11/11/24 11:47 FiO2 Intake & Output 11/10/24 11/11/24 11/11/24 18:59 06:59 18:59 Intake Total 250 118 Balance 250 118 Weight 70.3 kg Intake: IV 250 Oral 118 Other: Voiding Method Toilet Toilet - Labs CBC & Chem 7: 11/10/24 05:35 11/11/24 05:15 Labs: Abnormal Lab Results - Last 24 Hours (Table) 11/11/24 Range/Units 05:15 Creatinine 1.27 H (0.66-1.25) mg/dL Microbiology - Last 24 Hours (Table) 11/09/24 12:50 Nasal Screen MRSA/MSSA - Final Nasal Swab
[2024-11-11 13:08] VITALS: BMI 22.2
--- NOTE | 2024-11-14 10:41 | P.DS ---
Providers Date of admission: 11/08/24 16:19 Expected date of discharge: 11/11/24 Attending physician: Kirit Burgess Consults: 11/08/24 19:02 Consult Physician Routine Consulting Provider: Edu Hurst Consult Reason/Comments: [facility] transfer post cath Do you want consulting provider notified?: Yes, Notify in am 11/08/24 19:03 Consult Physician Routine Consulting Provider: Mario Mclean Consult Reason/Comments: [facility] transfer post cath Do you want consulting provider notified?: Yes, Notify in am 11/10/24 20:27 Consult Physician Routine Consulting Provider: [facility] Consult Reason/Comments: Post Interventional patient Do you want consulting provider notified?: Already Contacted Primary care physician: Stated None Hospital Course: Final diagnosis Multilevel coronary artery disease, status post PCI stenting to the mid LAD with Dr. Burgos Ischemic cardiomyopathy Hypertension uncontrolled Continued ongoing nicotine abuse GI prophylaxis DVT prophylaxis Full code Discharge disposition Patient is being discharged in a stable condition with guarded prognosis to home. Patient will follow-up with Dr. Andre Shirley in the outpatient setting upo n discharge. Patient is to continue with current cardiac medications and outpatient follow-up with cardiology as scheduled. Total time taken is greater than 35 minutes. Hospital course This is a 58-year-old male who was recently admitted from [facility] for further intervention regarding possible CABG has he was noted to have multilevel coronary artery disease. Patient does not want surgery although was agreeable to stenting and is status post PCI stenting to the mid LAD. Patient to continue on multiple cardiac medications and maximizing medical management with close outpatient follow-up. Strongly recommend complete tobacco cessation and lifestyle risk factor modifications as well. Patient reports to feeling well and will be discharged home today. Patient has been cleared by cardiology. Please refer to cardiology note for further HPI. Currently no reports of chest pain, shortness of breath, or palpitations. Patient is afebrile. No reports of nausea or vomiting and patient is tolerating diet. Patient will be discharged home today. Guarded prognosis and high risk for readmissions Physical exam: Gen: This is a 58-year-old male who is awake, alert and oriented x 3, well- developed, thin built, elderly appearing HEENT: Head is atraumatic, normocephalic. Pupils equal, round. Sclerae is anicteric. NECK: Supple. No JVD. No lymphadenopathy. No thyromegaly. LUNGS: Clear to auscultation. No wheezes or rhonchi. No intercostal retractions. HEART: Regular rate and rhythm. No murmur. ABDOMEN: Soft. Bowel sounds are present. No masses. No tenderness. EXTREMITIES: No pedal edema. No calf tenderness. NEUROLOGICAL: Patient is awake, alert and oriented x3. Cranial nerves 2 through 12 are grossly intact. Please refer to medication reconciliation sheet for a list of medications. The impression and plan of care has been dictated by Marie Kwon, Nurse Practitioner as directed. Dr. Casper MD I have performed a history and examination and MDM of this patient, discussed the same with the dictator, and agree with the dictator's assessment and plan as written ,documented as a scribe. Based on total visit time, I have performed more than 50% of the visit. Patient Condition at Discharge: Fair Plan - Discharge Summary Discharge Rx Participant: No New Discharge Prescriptions: New Aspirin 81 mg PO DAILY #30 tab Ticagrelor [Brilinta] 90 mg PO BID #60 tab carvediloL [Coreg*] 25 mg PO BID-W/MEALS #120 tab Isosorbide Mononitrate ER [Imdur] 30 mg PO DAILY #30 tab amLODIPine [Norvasc] 10 mg PO DAILY #30 tab hydrALAZINE HCL [Apresoline] 25 mg PO QID #120 tab Losartan [Cozaar] 50 mg PO DAILY #30 tab Nicotine 14Mg/24Hr Patch [Habitrol] 1 patch TRANSDERM DAILY patch Atorvastatin [Lipitor] 80 mg PO HS #30 tab Nitroglycerin Sl Tabs [Nitrostat] 0.4 mg SUBLINGUAL Q5M PRN #20 tab PRN Reason: Chest Pain Continue Ipratropium-Albuterol Nebulize [Duoneb 0.5 mg-3 mg/3 ml Soln] 3 ml INHALATION RT-Q8H PRN PRN Reason: Shortness Of Breath Albuterol Inhaler [Ventolin Hfa Inhaler] 1 puff INHALATION RT-Q4H PRN PRN Reason: Shortness Of Breath Discharge Medication List Albuterol Inhaler [Ventolin Hfa Inhaler] 1 puff INHALATION RT-Q4H PRN 11/08/24 [History] Ipratropium-Albuterol Nebulize [Duoneb 0.5 mg-3 mg/3 ml Soln] 3 ml INHALATION RT-Q8H PRN 11/08/24 [History] Aspirin 81 mg PO DAILY #30 tab 11/11/24 [Rx] Atorvastatin [Lipitor] 80 mg PO HS #30 tab 11/11/24 [Rx] Isosorbide Mononitrate ER [Imdur] 30 mg PO DAILY #30 tab 11/11/24 [Rx] Losartan [Cozaar] 50 mg PO DAILY #30 tab 11/11/24 [Rx] Nicotine 14Mg/24Hr Patch [Habitrol] 1 patch TRANSDERM DAILY patch 11/11/24 [Rx] Nitroglycerin Sl Tabs [Nitrostat] 0.4 mg SUBLINGUAL Q5M PRN #20 tab 11/11/24 [Rx] Ticagrelor [Brilinta] 90 mg PO BID #60 tab 11/11/24 [Rx] amLODIPine [Norvasc] 10 mg PO DAILY #30 tab 11/11/24 [Rx] carvediloL [Coreg*] 25 mg PO BID-W/MEALS #120 tab 11/11/24 [Rx] hydrALAZINE HCL [Apresoline] 25 mg PO QID #120 tab 11/11/24 [Rx] Follow up Appointment(s)/Referral(s): Matt Faulkner MD [Medical Doctor] - 1 Week (S[employer] B[employer] Consultant's office will call to set up a follow-up appointment.) Chiquita Montiel MD [STAFF PHYSICIAN] - 1 Week Activity/Diet/Wound Care/Special Instructions: Activity limited until follow-up Follow-up with cardiology outpatient Continue taking medications as prescribed Strongly recommend establishing with a primary care provider outpatient Avoid tobacco use and exposure Continue heart healthy diet Discharge Disposition: HOME SELF-CARE
== END 2024-11-11 16:17 | disposition home or self-care (01) | DRG 175 ==
LOC: 3SCARD 16:19
PROVIDERS: ADMIT Internal Medicine; ATTEND Internal Medicine
PROC: 027034Z Dilation of Coronary Artery, One Artery with Drug-eluting Intraluminal Device, Percutaneous Approach (ICD-10-PCS; principal; 2024-11-08)
PROC: B240ZZ3 Ultrasonography of Single Coronary Artery, Intravascular (ICD-10-PCS; 2024-11-08)
PROC: 4A033BC Measurement of Arterial Pressure, Coronary, Percutaneous Approach (ICD-10-PCS; 2024-11-08)
DX: I11.0 Hypertensive heart disease with heart failure (principal); I50.23 Acute on chronic systolic (congestive) heart failure; I25.5 Ischemic cardiomyopathy; I25.110 Atherosclerotic heart disease of native coronary artery with unstable angina pectoris; F17.210 Nicotine dependence, cigarettes, uncomplicated; Z71.6 Tobacco abuse counseling
CPT/HCPCS: 71045; 80048; 80053; 82565; 83735; 85025; 85027; 85610; 87070; 92978; 93799; 93880; 93970; 94640